=== PATIENT | male | born 1985 | race Caucasian/White ===

== ENCOUNTER 2017-06-26 18:20 | Emergency (ER) | payer MEDICAID ==
[~2017-06-26] VITALS: Ht 172.7 cm; Wt 90.0 kg
[2017-06-26 18:30] VITALS: BP 143/108
[2017-06-26] MEDS ORDERED: FLUORESCEIN OPHTHALMIC 1 MG STRIP ONE (18:36)
[2017-06-26] MEDS ORDERED: PROPARACAINE OPHTH 0.5%, 15ML ONE (18:37)
[2017-06-26] MEDS ORDERED: FLUORESCEIN OPHTHALMIC 1 MG STRIP EACHEYE ONE (19:30)
[2017-06-26] MEDS ORDERED: PROPARACAINE OPHTH 0.5%, 15ML EACHEYE ONE (19:30)
== END 2017-06-26 19:12 | disposition home or self-care (01) ==
LOC: ED 19:00 → EDBD 19:00 → ED 19:12
DX: S05.02XA Injury of conjunctiva and corneal abrasion without foreign body, left eye, initial encounter (principal); S05.01XA Injury of conjunctiva and corneal abrasion without foreign body, right eye, initial encounter; X58.XXXA Exposure to other specified factors, initial encounter; Y93.89 Activity, other specified; Y99.8 Other external cause status; Y92.89 Other specified places as the place of occurrence of the external cause
CPT/HCPCS: 99283